=== PATIENT | female | born 1985 | race Two or more races ===

== ENCOUNTER 2016-09-25 13:34 | Emergency (ER) | payer SELFPAY ==
[2016-09-25 13:45] VITALS: BP 106/67; PULSE 57; RESP 16; TEMP 97; O2SAT 100
--- NOTE | 2016-09-25 14:36 | ED PDOC ---
HPI: Eye Injury/Pain Time Seen by Provider: 09/25/16 13:59 Chief Complaint (Nursing): Eye Problem Chief Complaint (Provider): Eye Irritation History Per: Patient History/Exam Limitations: language barrier (Polish interpretation used) Onset/Duration Of Symptoms: Days (x 3 weeks) Current Symptoms Are (Timing): Still Present Associated Symptoms: denies: Decreased Vision Additional Complaint(s): Radha Dc is a 31-year-old Polish-speaking female who presents to the emergency department complaining of eye redness associated with crusty eye discharge, ongoing for the past 3 weeks. Patient denies change in vision. She believed symptoms were related to worsened allergies and took Zyrtec and Claritin without relief. certified court/medical interpreter [id number] provided interpretation for this visit. Past Medical History Reviewed: Historical Data, Nursing Documentation, Vital Signs Vital Signs: Last Vital Signs Temp 97.0 F L 09/25/16 13:42 Pulse 57 L 09/25/16 13:42 Resp 16 09/25/16 13:42 BP 106/67 09/25/16 13:42 Pulse Ox 100 09/25/16 13:42 - Medical History PMH: No Chronic Diseases - Surgical History Surgical History: No Surg Hx - Family History Family History: States: Unknown Family Hx - Social History Current smoker - smoking cessation education provided: No Alcohol: None Drugs: Denies - Home Medications Home Medications: Ambulatory Orders Medication Instructions Recorded Polymyxin/Trimethoprim Sulfate 1 drop XX Q6H 10 Days 09/25/16 [Polytrim Ophth Soln] - Allergies Allergies/Adverse Reactions: Allergies Allergy/AdvReac Type Severity Reaction Status Date / Time No Known Allergies Allergy Verified 09/25/16 13:42 Review of Systems ROS Statement: Except As Marked, All Systems Reviewed And Found Negative Eyes: Positive for: Redness, Other (White crusty discharge). Negative for: Vision Change Physical Exam - Reviewed Nursing Documentation Reviewed: Yes Vital Signs Reviewed: Yes - Physical Exam Appears: Positive for: Well, Non-toxic, No Acute Distress Head Exam: Positive for: ATRAUMATIC, NORMAL INSPECTION, NORMOCEPHALIC Skin: Positive for: Normal Color, Warm, Dry Eye Exam: Positive for: EOMI, PERRL, Conjunctival injection, Other (sclera injection). Negative for: Normal appearance, Periorbital swelling, Periorbital tenderness ENT: Positive for: Normal ENT Inspection Neck: Positive for: Normal, Painless ROM, Supple Cardiovascular/Chest: Positive for: Regular Rate, Rhythm Respiratory: Positive for: Normal Breath Sounds Gastrointestinal/Abdominal: Negative for: Tenderness Back: Positive for: Normal Inspection. Negative for: Vertebral Tenderness Extremity: Positive for: Normal ROM. Negative for: Deformity Neurologic/Psych: Positive for: Alert, Oriented - ECG O2 Sat by Pulse Oximetry: 100 (RA) Pulse Ox Interpretation: Normal Disposition - Clinical Impression Clinical Impression: Conjunctivitis - Patient ED Disposition Is Patient to be Admitted: No Counseled Patient/Family Regarding: Diagnosis, Need For Followup, Rx Given - Disposition Disposition Time: 14:43 Condition: STABLE Prescriptions: Polymyxin/Trimethoprim Sulfate [Polytrim Ophth Soln] 1 drop XX Q6H 10 Days Instructions: Conjunctivitis (ED) Print Language: TUNISIAN
== END 2016-09-25 15:00 | disposition home or self-care (01) ==
LOC: H.ER 13:34
DX: H10.9 Unspecified conjunctivitis (principal)